=== PATIENT | male | born 1975 | race American Indian/Alaskan Native ===

== ENCOUNTER 2018-04-25 20:59 | Emergency (ER) | payer SELFPAY ==
[2018-04-25] MEDS ORDERED: Povidone Iodine Topical 10% Sol ONE (21:31)
[2018-04-25] MEDS ORDERED: Tdap Vaccine 0.5 ml Vial (10-64 yrs) IM ONE ×2 (22:06→22:34)
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
[2018-04-25] MEDS ORDERED: Amoxicillin-Clav 875-125 mg Tab PO STA (22:45)
[2018-04-25] MEDS ORDERED: Amoxicillin-Clav 875-125 mg Tab PO ONE (23:20)
[2018-04-26 08:20] VITALS: BP 138/62; PULSE 66; RESP 16; TEMP 98.2; O2SAT 98
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
== END 2018-04-25 23:55 | disposition home or self-care (01) ==
LOC: H.ER 20:59
DX: S51.812A Laceration without foreign body of left forearm, initial encounter (principal); S41.111A Laceration without foreign body of right upper arm, initial encounter; S21.219A Laceration without foreign body of unspecified back wall of thorax without penetration into thoracic cavity, initial encounter; F17.200 Nicotine dependence, unspecified, uncomplicated; W26.9XXA Contact with unspecified sharp object(s), initial encounter; Z23 Encounter for immunization